=== PATIENT | female | born 1980 | race Caucasian/White ===

== ENCOUNTER 2021-07-12 10:45 | Outpatient (CLI) | payer BC | END 2021-07-12 10:46 | disposition home or self-care (01) | LOC: DTY/OP 10:45 | PROVIDERS: ATTEND Surgery | DX: E66.01 Morbid (severe) obesity due to excess calories (principal); Z68.37 Body mass index [BMI] 37.0-37.9, adult | CPT/HCPCS: 97802 ==

== ENCOUNTER 2021-08-24 13:56 | Outpatient (CLI) | payer BC ==
[2021-08-24 15:16] LABS: #Eosinphils 0.1 10x3/uL (0.0-0.5); #Monocytes 0.5 10x3/uL (0.0-1.1); #Neutrophils 3.4 10x3/uL (1.5-8.4); %Basophils 0.5 % (0.0-2.0); %Eosinophils 2.2 % (0.0-6.0); %Lymphocytes 30.9 % (18.0-47.0); %Monocytes 7.9 % (0.0-10.0); %Neutrophils 58.3 % (40.0-75.0); Hemoglobin 13.1 g/dL (12.0-15.5); Mean Corpuscular HGB CONC 33.5 g/dL (32.0-36.0); Mean Corpuscular Hemoglobin 29.8 pg (27.0-33.0); Mean Corpuscular Volume 88.9 fl (81.6-98.3); Platelet Count 235 10x3/uL (150-450); RBC Distribution Width 13.5 % (11.5-14.5); White Blood Cell (WBC) Count 5.8 10x3/uL (3.5-10.5)
[2021-08-24 15:31] LABS: BHCG - Serum Negative (NEGATIVE); Pregs Control Background? CLEAR/WHITE (CLR/WHITE); Pregs Control Bar Appear? YES (CONTROL BAR)
[2021-08-24 15:46] LABS: ALT (SGPT) 17 U/L (8-55); AST (SGOT) 20 U/L (5-34); Albumin 4.6 g/dL (3.5-5.0); Alkaline Phosphatase 46 U/L (40-110); Anion Gap 18 mmol/L (10-20); BUN (Urea Nitrogen) 9 mg/dL (7.0-18.7); Bilirubin, Total 0.4 mg/dL (0.2-1.2); Calc. Creatinine Clearance 0 mL/min (70-130); Calcium 9.6 mg/dL (7.8-10.44); Carbon Dioxide 21 mmol/L (22-29); Chloride 104 mmol/L (98-107); Globulin 2.7 g/dL (2.4-3.5); Glucose 77 mg/dL (70-105); Potassium 3.7 mmol/L (3.5-5.1); Protein, Total 7.3 g/dL (6.0-8.3); Sodium 139 mmol/L (136-145)
[2021-08-24 19:44] LABS: Hemoglobin A1c 4.8 % (4.0-6.0)
[2021-08-25 16:33] LABS: SARS-CoV-2 PCR by NAA Not Detected (NotDetected)
== END 2021-08-24 13:57 | disposition home or self-care (01) ==
LOC: LABBT 13:56
PROVIDERS: ATTEND Surgery
DX: Z01.818 Encounter for other preprocedural examination (principal); E66.01 Morbid (severe) obesity due to excess calories; Z20.822 Contact with and (suspected) exposure to COVID-19
CPT/HCPCS: 71046; 80053; 83036; 84703; 85025; 93005; 93010; U0003; U0005

== ENCOUNTER 2021-08-24 14:30 | Inpatient (IN) | payer BC ==
[2021-08-29] MEDS ORDERED: Scopolamine 1.5 mg/72 hour Patch ONE (07:26)
[2021-08-29] MEDS ORDERED: Lidocaine 1% MPF 2 ML VIAL ONE (07:26)
[2021-08-29] MEDS ORDERED: Heparin 5,000 UNITS/ML VIAL ONE (07:26)
[2021-08-29] MEDS ORDERED: Lidocaine 1% w/Epinephrine 1:100K 20 ML VIAL ONE (09:40)
[2021-08-29] MEDS ORDERED: Bupivacaine 0.25% 10 ML VIAL ONE (09:40)
[2021-08-29] MEDS ORDERED: fentaNYL Citrate/PF 100 MCG/2 ML SYRINGE ONE ×2 (10:11→12:01)
[2021-08-29] MEDS ORDERED: CEFAZOLIN 2 GM VIAL ONE (10:14)
[2021-08-29] MEDS ORDERED: Sodium Chloride 0.9% 100 ML ONE (10:14)
[2021-08-29] MEDS ORDERED: PROPOFOL 200 MG/20 ML VIAL ONE (10:26)
[2021-08-29] MEDS ORDERED: Dexamethasone 20 MG/5 ML VIAL ONE (10:26)
[2021-08-29] MEDS ORDERED: Glycopyrrolate 0.2 MG/ML 5 ML SYRINGE ONE (10:26)
[2021-08-29] MEDS ORDERED: Ondansetron PF 4 MG/2 ML Vial ONE ×2 (10:26)
[2021-08-29] MEDS ORDERED: Rocuronium Bromide 10 MG/ML (10ML VIAL) ONE (10:26)
[2021-08-29] MEDS ORDERED: Lidocaine 1% PF 5 ML VIAL ONE (10:26)
[2021-08-29] MEDS ORDERED: hydrALAZINE 20 MG/ML VIAL SLOW IVP PRN (13:39)
[2021-08-29] MEDS ORDERED: Ondansetron PF 4 MG/2 ML Vial IVP PRN (13:39)
[2021-08-29] MEDS ORDERED: Dextrose 5% in Water 1,000 ML IV PRN (13:39)
[2021-08-29] MEDS ORDERED: Dextrose 50% Abboject 50 ML SYRINGE SLOW IVP PRN (13:39)
[2021-08-29] MEDS ORDERED: diphenhydrAMINE 50 MG/ML VIAL IVP PRN (13:39)
[2021-08-29] MEDS ORDERED: Promethazine HCl 25 MG/ML VIAL IVPB PRN (13:48)
[2021-08-29] MEDS ORDERED: Promethazine HCl 25 MG/ML VIAL IM PRN (13:48)
[2021-08-29] MEDS ORDERED: Ondansetron HCl/PF 4 MG/2 ML Vial IVP PRN (13:48)
[2021-08-29] MEDS ORDERED: Promethazine HCl 25 MG/ML VIAL ONE (13:59)
[2021-08-29] MEDS ORDERED: Fentanyl 100 MCG/2 ML VIAL ONE (14:05)
[2021-08-29] MEDS ORDERED: D5 1/2 NS w/20 mEq KCL 1,000 ML ONE (14:23)
[2021-08-29] MEDS: Fentanyl 100 MCG/2 ML VIAL SLOW IVP PRN ×2 (16:45→21:46)
[2021-08-29] MEDS: Promethazine HCl 25 MG/ML VIAL IM PRN ×2 (16:50→21:47)
[2021-08-29] MEDS: D5 1/2 NS w/20 mEq KCL 1,000 ML IV SCH ×3 (17:11→23:48)
[2021-08-29] MEDS: CEFAZOLIN 2 GM in Sodium Chloride 0.9% 100 ML IVPB SCH (18:45)
[2021-08-29] MEDS: Ketorolac Tromethamine 30 MG/ML VIAL IVP SCH ×2 (18:45→23:48)
[2021-08-30] MEDS: CEFAZOLIN 2 GM in Sodium Chloride 0.9% 100 ML IVPB SCH (02:37)
[2021-08-30] MEDS: Ketorolac Tromethamine 30 MG/ML VIAL IVP SCH ×3 (06:01→18:19)
[2021-08-30] MEDS: D5 1/2 NS w/20 mEq KCL 1,000 ML IV SCH ×2 (06:04→11:49)
[2021-08-30 06:16] LABS: #Basophils 0.2 thou/uL (0.0-0.2); #Lymphocytes 0.9 thou/uL (1.20-3.40); #Monocytes 0.9 thou/uL (0.11-0.59); #Neutrophils 10.9 thou/uL (1.40-6.50); %Basophils 1.2 % (0.0-1.0); %Eosinophils 0.1 % (0.0-10.0); %Monocytes 6.8 % (0.0-10.0); Hemoglobin 11.2 g/dL (12.0-16.0); Mean Corpuscular HGB CONC 32.6 g/dL (32.0-36.0); Mean Corpuscular Hemoglobin 30.5 pg (27.0-31.0); Mean Corpuscular Volume 93.6 fL (78.0-98.0); Mean Platelet Volume 8.4 fL (7.4-10.4); Platelet Count 204 thou/uL (130-400); RBC Distribution Width 12.7 % (11.5-14.5); Red Blood Cell (RBC) Count 3.67 mill/uL (4.20-5.40); White Blood Cell (WBC) Count 12.8 thou/uL (4.8-10.8)
[2021-08-30 06:32] LABS: Anion Gap 11 mmol/L (10-20); BUN (Urea Nitrogen) 7 mg/dL (7.0-18.7); Calc. Creatinine Clearance 162 mL/min (70-130); Calcium 8.7 mg/dL (7.8-10.44); Carbon Dioxide 21 mmol/L (22-29); Chloride 107 mmol/L (98-107); Glucose 142 mg/dL (70-105); Potassium 3.7 mmol/L (3.5-5.1); Sodium 135 mmol/L (136-145)
[2021-08-30] MEDS: Enoxaparin Sodium 40 MG/0.4 ML SYRINGE SC SCH (09:21)
[2021-08-30] MEDS: Pantoprazole 40 MG VIAL IVP SCH (09:21)
[2021-08-30 20:12] VITALS: BMI 36.7
[2021-08-31] MEDS: D5 1/2 NS w/20 mEq KCL 1,000 ML IV SCH ×2 (00:01→05:47)
[2021-08-31] MEDS: Ketorolac Tromethamine 30 MG/ML VIAL IVP SCH ×3 (00:02→13:01)
[2021-08-31] MEDS: Pantoprazole 40 MG VIAL IVP SCH (08:51)
[2021-08-31] MEDS: Enoxaparin Sodium 40 MG/0.4 ML SYRINGE SC SCH (08:51)
[2021-08-31] MEDS ORDERED: Hydrocodone-Acetamin 15 ML UDCUP PO PRN (10:09)
[2021-08-31 15:42] VITALS: BP 92/60; TEMP 98.3
== END 2021-08-31 16:45 | disposition home or self-care (01) | DRG 621 ==
LOC: SURG A 08-29 06:42 → SURG B 08-29 15:17
PROVIDERS: ADMIT Surgery; ATTEND Surgery
PROC: 0D164ZA Bypass Stomach to Jejunum, Percutaneous Endoscopic Approach (ICD-10-PCS; principal; 2021-08-29)
PROC: 0BQT4ZZ Repair Diaphragm, Percutaneous Endoscopic Approach (ICD-10-PCS; 2021-08-29)
PROC: 8E0W4CZ Robotic Assisted Procedure of Trunk Region, Percutaneous Endoscopic Approach (ICD-10-PCS; 2021-08-29)
DX: E66.01 Morbid (severe) obesity due to excess calories (principal); Z20.822 Contact with and (suspected) exposure to COVID-19; K44.9 Diaphragmatic hernia without obstruction or gangrene; Z88.5 Allergy status to narcotic agent; Z68.36 Body mass index [BMI] 36.0-36.9, adult; Z90.49 Acquired absence of other specified parts of digestive tract
CPT/HCPCS: 36415; 80048; 85025; 94760; C9113; J1644; J1650; J1885; J2405; J2550; J3010; J3480; J3490; S0020

== ENCOUNTER 2021-09-11 15:38 | Day surgery (SDC) | payer BC ==
[2021-09-11] MEDS ORDERED: Ondansetron PF 4 MG/2 ML Vial IVP PRN (17:05)
[2021-09-11] MEDS ORDERED: THIAMINE HCL IV SCH (17:30)
[2021-09-11] MEDS ORDERED: MULTIVITAMINS IV SCH (17:30)
[2021-09-11] MEDS ORDERED: SODIUM CHLORIDE 0.9% IV SCH (17:30)
[2021-09-11] MEDS ORDERED: Sodium Chloride 0.9% 1,000 ML IV SCH (18:30)
[2021-09-14] MEDS ORDERED: Prevnar 13-Val Conj/PF 0.5 ML SYRINGE IM ONE (18:15)
== END 2021-09-11 19:52 | disposition home or self-care (01) ==
LOC: ONC/OP 15:38 → MSONC 15:39 → ONC/OP 19:52
PROVIDERS: ATTEND Surgery
DX: E86.0 Dehydration (principal); Z88.5 Allergy status to narcotic agent; R07.9 Chest pain, unspecified
CPT/HCPCS: 36415; 71045; 80053; 83690; 84484; 85025; 93005; 96365; 96366; J3411; J7050

== ENCOUNTER 2021-09-11 20:44 | Emergency (ER) | payer BC ==
[2021-09-11 21:32] LABS: #Eosinphils 0.2 thou/uL (0.0-0.7); #Lymphocytes 2.1 thou/uL (1.20-3.40); #Monocytes 0.5 thou/uL (0.11-0.59); #Neutrophils 3.5 thou/uL (1.40-6.50); %Basophils 0.6 % (0.0-1.0); %Eosinophils 3.4 % (0.0-10.0); %Lymphocytes 32.9 % (21.0-51.0); %Monocytes 8.3 % (0.0-10.0); %Neutrophils 54.9 % (42.0-75.0); Hemoglobin 11.5 g/dL (12.0-16.0); Mean Corpuscular HGB CONC 33.6 g/dL (32.0-36.0); Mean Corpuscular Volume 92.2 fL (78.0-98.0); Platelet Count 283 thou/uL (130-400); RBC Distribution Width 12.9 % (11.5-14.5); White Blood Cell (WBC) Count 6.3 thou/uL (4.8-10.8)
[2021-09-11 23:04] LABS: ALT (SGPT) 37 U/L (8-55); AST (SGOT) 16 U/L (5-34); Albumin 3.8 g/dL (3.5-5.0); Alkaline Phosphatase 66 U/L (40-110); Anion Gap 13 mmol/L (10-20); BUN (Urea Nitrogen) 9 mg/dL (7.0-18.7); Bilirubin, Total 0.4 mg/dL (0.2-1.2); Calc. Creatinine Clearance 0 mL/min (70-130); Calcium 9.2 mg/dL (7.8-10.44); Carbon Dioxide 23 mmol/L (22-29); Chloride 106 mmol/L (98-107); Globulin 2.6 g/dL (2.4-3.5); Glucose 81 mg/dL (70-105); Lipase 92 U/L (8-78); Protein, Total 6.4 g/dL (6.0-8.3); Sodium 138 mmol/L (136-145)
== END 2021-09-11 23:43 | disposition home or self-care (01) ==
LOC: ERS 20:44
DX: R07.9 Chest pain, unspecified (principal)
CPT/HCPCS: 36415; 71045; 80053; 83690; 84484; 85025; 93005

== ENCOUNTER 2021-09-28 15:57 | Observation (INO) | payer BC ==
[~2021-09-28 15:57] MED LIST: GASTROGRAFIN 30 ML BOT ONE; Iopamidol-370 76% 500 ML 1 ML ONE
[2021-09-28 17:15] LABS: #Eosinphils 0.1 thou/uL (0.0-0.7); #Lymphocytes 1.3 thou/uL (1.20-3.40); #Monocytes 0.4 thou/uL (0.11-0.59); #Neutrophils 3.8 thou/uL (1.40-6.50); %Basophils 0.6 % (0.0-1.0); %Eosinophils 1.6 % (0.0-10.0); %Lymphocytes 22.7 % (21.0-51.0); %Monocytes 7.6 % (0.0-10.0); %Neutrophils 67.4 % (42.0-75.0); Hemoglobin 12.5 g/dL (12.0-16.0); Mean Corpuscular HGB CONC 32.6 g/dL (32.0-36.0); Mean Corpuscular Hemoglobin 30.8 pg (27.0-31.0); Mean Corpuscular Volume 94.6 fL (78.0-98.0); Mean Platelet Volume 8.3 fL (7.4-10.4); Platelet Count 209 thou/uL (130-400); RBC Distribution Width 12.8 % (11.5-14.5); Red Blood Cell (RBC) Count 4.06 mill/uL (4.20-5.40); White Blood Cell (WBC) Count 5.7 thou/uL (4.8-10.8)
[2021-09-28 17:37] LABS: ALT (SGPT) 15 U/L (8-55); AST (SGOT) 17 U/L (5-34); Albumin 4.3 g/dL (3.5-5.0); Alkaline Phosphatase 56 U/L (40-110); Anion Gap 19 mmol/L (10-20); BUN (Urea Nitrogen) 8 mg/dL (7.0-18.7); Bilirubin, Total 0.4 mg/dL (0.2-1.2); Calc. Creatinine Clearance 0 mL/min (70-130); Calcium 9.9 mg/dL (7.8-10.44); Carbon Dioxide 21 mmol/L (22-29); Chloride 105 mmol/L (98-107); Globulin 3.1 g/dL (2.4-3.5); Glucose 77 mg/dL (70-105); Lipase 51 U/L (8-78); Potassium 3.6 mmol/L (3.5-5.1); Protein, Total 7.4 g/dL (6.0-8.3); Sodium 141 mmol/L (136-145)
[2021-09-28 17:42] LABS: BHCG - Serum Negative (NEGATIVE); Pregs Control Background? CLEAR/WHITE (CLR/WHITE); Pregs Control Bar Appear? YES (CONTROL BAR)
[2021-09-28 21:04] LABS: Bilirubin Negative (Negative); Blood, Urine Negative (Negative); Clarity Clear (Clear); Glucose, Urine (Dipstick) Normal (Negative); Ketone, Urine Greater than 150 mg/dL (Negative); Leukocyte Negative Leu/uL (Negative); Nitrite Negative (Negative); Protein, Urine (Dipstick) Negative (Neg-Trace); Specific Gravity, Urine 1.036 (1.002-1.036); Urobilinogen Normal mg/dL (Less than 2); pH, Urine 5.5 (5.0-9.0)
[2021-09-28] MEDS ORDERED: Pantoprazole 40 MG VIAL ONE (21:42)
[2021-09-28] MEDS ORDERED: Ondansetron ODT 4 MG TAB SL PRN (21:45)
[2021-09-28] MEDS ORDERED: Ondansetron PF 4 MG/2 ML Vial IVP PRN (21:45)
[2021-09-28 23:12] VITALS: BMI 33.4
[2021-09-28] MEDS: Sodium Chloride 0.9% 1,000 ML IV SCH (23:25)
[2021-09-29] MEDS ORDERED: Thiamine HCl 200 MG/2 ML VIAL SLOW IVP SCH (09:00)
[2021-09-29] MEDS: Pantoprazole 40 MG VIAL IVP SCH (11:54)
[2021-09-29] MEDS: Sodium Chloride 0.9% 1,000 ML IV SCH ×2 (11:58→22:04)
[2021-09-29] MEDS ORDERED: PROPOFOL 200 MG/20 ML VIAL ONE (20:02)
[2021-09-29] MEDS ORDERED: Lidocaine 1% PF 5 ML VIAL ONE (20:02)
[2021-09-29] MEDS ORDERED: Ondansetron ODT 4 MG TAB SL PRN (21:55)
[2021-09-29] MEDS ORDERED: Ondansetron PF 4 MG/2 ML Vial IVP PRN (21:55)
[2021-09-30] MEDS: Sodium Chloride 0.9% 1,000 ML IV SCH (05:36)
[2021-09-30] MEDS: Pantoprazole 40 MG VIAL IVP SCH (08:47)
[2021-09-30] MEDS: D5 1/2 NS w/20 mEq KCL 1,000 ML IV SCH ×2 (10:18→20:37)
[2021-10-01] MEDS: D5 1/2 NS w/20 mEq KCL 1,000 ML IV SCH (05:34)
[2021-10-01] MEDS: Pantoprazole 40 MG VIAL IVP SCH (09:26)
[2021-10-01 12:49] VITALS: BP 113/77; TEMP 98
== END 2021-10-01 14:53 | disposition home or self-care (01) ==
LOC: ERS 15:57 → SURG B 21:40
PROVIDERS: ADMIT Surgery; ATTEND Surgery
DX: K91.89 Other postprocedural complications and disorders of digestive system (principal); K21.9 Gastro-esophageal reflux disease without esophagitis; E66.01 Morbid (severe) obesity due to excess calories; Z68.33 Body mass index [BMI] 33.0-33.9, adult; Z20.822 Contact with and (suspected) exposure to COVID-19; Z88.5 Allergy status to narcotic agent
CPT/HCPCS: 36415; 71275; 74177; 80053; 81003; 83690; 84703; 85025; 93005; 96361; 96365; 96374; 96375; 96376; C9113; G0378; J2704; J3411; J3480; J7050; Q9963; Q9967; U0003; U0005